=== PATIENT | female | born 1970 | race Caucasian/White ===

== ENCOUNTER → 2024-04-16 06:41 | Outpatient (REF) | payer OTHER, SELFPAY | LOC: MRI 06:41 | PROVIDERS: ATTENDING PHYSICIAN Physician Assistant Medical; FAMILY PHYSICIAN Internal Medicine | DX: M54.12 Radiculopathy, cervical region (principal); M48.02 Spinal stenosis, cervical region | CPT/HCPCS: 72141 ==

== ENCOUNTER → 2024-07-13 06:17 | Day surgery (SDC) | payer OTHER, SELFPAY | LOC: GI 06:17 | PROVIDERS: ATTENDING PHYSICIAN Internal Medicine | PROC: 0DBL8ZX Excision of Transverse Colon, Via Natural or Artificial Opening Endoscopic, Diagnostic (ICD-10-PCS; 2024-07-13) | DX: Z12.11 Encounter for screening for malignant neoplasm of colon (principal); D12.3 Benign neoplasm of transverse colon | CPT/HCPCS: 45385; 88305 ==

== ENCOUNTER → 2024-07-27 08:02 | Outpatient (REF) | payer OTHER, SELFPAY | LOC: HWWDC 08:02 | PROVIDERS: ATTENDING PHYSICIAN Obstetrics & Gynecology Gynecology; FAMILY PHYSICIAN Internal Medicine | DX: E28.39 Other primary ovarian failure (principal); Z12.31 Encounter for screening mammogram for malignant neoplasm of breast | CPT/HCPCS: 77063; 77067; 77080 ==

== ENCOUNTER → 2024-10-27 18:36 | Outpatient (REF) | payer OTHER, SELFPAY | LOC: PAVMRI 18:36 | PROVIDERS: ATTENDING PHYSICIAN Orthopaedic Surgery Orthopaedic Surgery of the Spine; FAMILY PHYSICIAN Internal Medicine | DX: M48.02 Spinal stenosis, cervical region (principal) | CPT/HCPCS: 72141 ==

== ENCOUNTER → 2024-12-13 07:18 | Outpatient (REF) | payer OTHER, SELFPAY | LOC: MRI 07:18 | PROVIDERS: ATTENDING PHYSICIAN Orthopaedic Surgery Orthopaedic Surgery of the Spine; FAMILY PHYSICIAN Internal Medicine | DX: M48.062 Spinal stenosis, lumbar region with neurogenic claudication (principal) | CPT/HCPCS: 72148 ==

== ENCOUNTER 2025-05-19 14:20 | Emergency (ER) | payer OTHER, SELFPAY ==
[2025-05-19 14:26] VITALS: BP 166/83
[2025-05-19 14:48] LABS: Hematocrit 32.5 % (37.0-47.0); Hemoglobin 11.2 g/dL (12.0-16.0); Mean Corp Hgb Conc. 34.5 g/dL (33.0-37.0); Mean Corpuscular Volume 90.8 fL (81.0-99.0); Nucleated Red Blood Cells % 0 %; Platelet Count 274 10^3/uL (130-400); Red Cell Dist. Width 12.5 % (11.5-14.5)
[2025-05-19 14:59] LABS: INR 0.92; PT 12.9 Sec (11.4-14.6)
[2025-05-19 15:00] LABS: APTT 26.3 Sec (23.4-35.0)
[2025-05-19 15:25] LABS: ALT (SGPT) 98 U/L (0-35); AST (SGOT) 67 U/L (14-36); Albumin 3.8 g/dl (3.5-5.0); Alkaline Phosphatase 81 U/L (38-126); Blood Urea Nitrogen 14 mg/dl (7-17); Calcium 9.3 mg/dl (8.4-10.2); Carbon Dioxide 26 mmol/L (22-30); Chloride 106 mmol/L (98-107); Glucose 101 mg/dl (70-99); Potassium 4.1 mmol/L (3.5-5.1); Sodium 139 mmol/L (135-145); Total Protein 6.2 g/dl (6.3-8.2); eGFR > 60.00
--- NOTE | 2025-05-19 17:19 | ED.GENMED ---
History of Present Illness
General
Chief Complaint: Chest Pain
Source: patient
Exam Limitations: none
Time Seen by Provider: 05/19/25 17:19
Nursing documentation reviewed up to this point in time: agreed with
History of Present Illness
History of Present Illness:
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 She reports starting in the
beginning of May she felt her heart pounding even at rest and has not felt well. She does feel little short of breath. She exercises frequently and normally her resting is in the 50s 60s however she looked on her Fitbit and since March her
heart rate has been very elevated up to the 130s. She saw her family doctor last week and her heart rate was elevated at that time. She was given a prescription for blood work but did not yet get it done. She denies any associated chest pain.
She does not smoke.
As documented she has a known right lung mass /nodule and is followed by Juan. She had PET testing and biopsy testing which was inconclusive however since 2022 has been monitored and unchanged so they are simply following it.
Past History
Past History
ED Past Medical History: Other (Scoliosis)
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
Social History
Tobacco: Non-smoker
Alcohol: Daily (Beer or wine 2-3 glasses)
Personal: Single (Engaged)
Living: with family
Phy Exam
General Physical Exam
General Presentation: no apparent distress
General age: appears stated age
General Skin: warm and dry
General Habitus: normal
General Mental: alert
General Hydration: appears well hydrated
Neurological Exam
Neurological Exam: alert and oriented x3
Musculoskeletal Exam
Musculoskeletal Exam: full ROM
Skin Exam
Skin Exam: normal color and warm/dry
Psychiatric Exam
Psychiatric Exam: normal mood/affect
Scores
Heart Score for Chest Pain Patients
STEMI patient?: Not applicable
Course
Orders/Labs/Results
Orders:
Orders
05/19/25 14:23
Electrocardiogram (*1) Urgent
Reason for Study: Bradycardia / Tachycardia
EKG- Treatment ONCE
05/19/25 14:39
Complete Blood Count/With Diff Urgent
Comprehensive Metabolic Panel Urgent
Free T4 Urgent
PT/INR [Prothrombin Time] Urgent
PTT Urgent
TSH Reflex To Free T4 Urgent
05/19/25 18:22
CT Chest PE Study Urgent
Comment:
Reason For Exam: sob elevated HR known right mass
05/19/25 18:26
0.9% Sodium Chloride 1000 ml [Nss] 1,000 ml IV BOLUS
05/19/25 19:38
Atenolol [Tenormin] 25 mg PO NOW STA
05/19/25 19:39
Methimazole [Tapazole] 10 mg PO NOW STA
Abnormal Lab Results
05/19/25
14:39
RBC 3.58 L 10^6/uL
(4.20-5.40)
Hgb 11.2 L g/dL
(12.0-16.0)
Hct 32.5 L %
(37.0-47.0)
MCH 31.3 H pg
(27.0-31.0)
Absolute Monos (auto) 1.2 H 10^3/uL
(0.1-0.6)
Monocytes % 17.3 H %
(1.7-9.3)
Creatinine 0.4 L mg/dL
(0.6-1.0)
Glucose 101 H mg/dl
(70-99)
AST 67 H U/L
(14-36)
ALT 98 H U/L
(0-35)
Total Protein 6.2 L g/dl
(6.3-8.2)
TSH (Reflex) < 0.02 L uIU/ml
(0.47-4.68)
Free T4 5.60 H ng/dl
(0.78-2.19)
05/19/25 14:39
05/19/25 14:39
Vital Signs
Initial and Last Documented VS:
Initial Vital Signs
Temp Pulse Resp BP Pulse Ox
98.7 F 116 20 166/83 95
05/19/25 14:26 05/19/25 14:26 05/19/25 14:26 05/19/25 14:26 05/19/25 14:26
Last Documented Vital Signs
Temp Pulse Resp BP Pulse Ox
98.7 F 98 19 128/61 95
05/19/25 14:26 05/19/25 19:50 05/19/25 19:50 05/19/25 19:49 05/19/25 18:13
Foundry Worker consulted with Physician
Foundry Worker consulted with physician?: Yes
Name of Physician Consulted: Kathy
MDM/Problems Addressed
Differential Diagnosis Includes:
Not limited to hyperthyroidism, electrolyte abnormality, dehydration, PE
MDM/Problems Addressed:
As documented patient is a 54-year-old female presented for elevated heart rate .
As documented patient noted on her Fitbit that her heart rate has been elevated since March which is not her typical heart rate normally she has very low resting heart rate as she is very active and exercises often. Early May she started with
palpitations. She presented here tachycardic however no acute distress not hypoxic. She is however being followed by Juan for pulmonary nodule and is also on hormone replacement therapy for premature ovarian failure. Because of this we will order
CT PE study however after reviewing lab results thyroid studies were abnormal consistent with hyperthyroidism. Case reviewed ED physician case reviewed with endocrinology on-call Dr. Holden who does recommend 10 mg twice of methimazole and a
beta-nima such as atenolol. Will give first doses here in the ER patient will need to see endocrinology within the next 2 weeks I did discuss this with pt .
ct neg.
She is well appearing and stable for d/c
Chronic conditions affecting care:
Premature ovarian failure on hormone replacement, pulmonary nodule being followed by Juan
*Radiology
Radiology exam reviewed: radiology read reviewed
*Pulse Oximetry
SaO2: 95
Oxygen Mode of Delivery: Room air
Patient hypoxic: no
*EKG
Interpreted by ED Provider?: Yes
Interpretation: abnormal
Heart Rate: 114
Rate: tachycardiac
Rhythm: sinus
Ischemia: no ischemia
*Critical Care Note
Total Time (30-74mins, 75-104mins- exclusive of procedures): Not Applicable
Patient Management
Discussion with other providers: Thread Marker
Escalation/DeEscalation of care consider admission/obs:
DR Keller
ED Attending Note
-
Portions of this chart may have been created with voice recognition software.� Occasional wrong word or��sound alike� substitutions may have occurred due to the inherent limitations of voice recognition software.
Discharge Plan
Departure
Patient Disposition: Home (Routine Discharge)
Date of Disposition: 05/19/25
Time of Disposition: 20:04
Patient with high blood pressure during this ER visit?: Yes
Condition: Fair
Covid-19: Not Applicable
Discharge Problem:
Hyperthyroidism
Instructions: Hyperthyroidism (overactive thyroid), BLOOD PRESSURE
Prescriptions:
New
atenolol 25 mg tablet
25 mg PO DAILY Qty: 30 0RF
methimazole 10 mg tablet
10 mg PO BID Qty: 60 0RF
No Action
celecoxib [Celebrex] 200 mg Capsule
200 mg PO PRN PRN (Reason: pain)
norethindrone ac-eth estradiol [Fyavolv] 1-5 mg-mcg Tablet
1 tab PO DAILY
acetaminophen [Tylenol Ex Str Arthritis Pain] 500 mg Tablet
1,000 mg PO Q6H PRN (Reason: pain)
albuterol 90 mcg/actuation Aerosol
90 mcg INHALATION PRN PRN (Reason: asthma)
fluticasone propionate [Flonase] 50 mcg/actuation [place],Suspension
1 spray INTRANASAL DAILY PRN (Reason: allergy)
gabapentin 300 mg Tablet
300 mg PO QHS
Probiotic with Prebiotic 1 billion-250 cell-mg Capsule
1 cap PO DAILY
fhqzrt-hgwyceaj-pcu C-E-herbal 1,250 mcg-50 mg -67.5 mg-15 mg Tablet,Chewable
1 tab PO DAILY
Collagen Skin Renewal 30-833.3 mg Tablet
1 tab PO DAILY
Referrals:
Rosaline Holden MD [Consulting Staff, Endocrinology]
Efra Brenner MD [Family Provider, Internal Medicine]
Activity Restrictions/Additional Instructions:
As discussed prescriptions were sent to your pharmacy including atenolol which is a beta-nima 25 mg once a day; and methimazole 10 mg twice a day to treat your hyperactive thyroid.
Please call endocrinology tomorrow morning to schedule an appointment soon as possible within the next 1 to 2 weeks.
Avoid caffeine
Return if any worsening of symptoms
Interventions
Interventions:
*Risk Screen - Suicide Last Done: 05/19/25 14:26
*General Assessment Last Done: 05/19/25 14:26
*Neglect/Abuse Screening Last Done: 05/19/25 17:12
*ED- Fall Risk Assessment Last Done: 05/19/25 17:12
*ED COVID-19 Vaccine History Last Done: 05/19/25 17:12
ED- Cardiac Assessment Last Done: 05/19/25 17:12
Discharge Date and Time
Print Language: PORTUGUESE
[2025-05-19 18:52] VITALS: BMI 24.6
[2025-05-19] MEDS: NSS 1000 IV (19:00)
[2025-05-19] MEDS: TENORMIN 25 MG PO (19:48)
[2025-05-19 19:49] VITALS: BP 128/61
[2025-05-19] MEDS: TAPAZOLE 10 MG PO (19:52)
== END 2025-05-19 20:15 | disposition home or self-care (01) ==
LOC: EMR 14:20
PROVIDERS: EMERGENCY PHYSICIAN Emergency Medicine; FAMILY PHYSICIAN Internal Medicine
DX: E05.90 Thyrotoxicosis, unspecified without thyrotoxic crisis or storm (principal); R91.1 Solitary pulmonary nodule; E28.39 Other primary ovarian failure; M41.9 Scoliosis, unspecified; Z79.890 Hormone replacement therapy
CPT/HCPCS: 99284; 96360; 71275; 80053; 84439; 84443; 85025; 85610; 85730; 93005; Q9967

== ENCOUNTER → 2025-05-27 06:51 | Outpatient (REF) | payer OTHER, SELFPAY | LOC: RAD 06:51 | PROVIDERS: ATTENDING PHYSICIAN Nurse Practitioner Family; FAMILY PHYSICIAN Internal Medicine | DX: E05.90 Thyrotoxicosis, unspecified without thyrotoxic crisis or storm (principal) | CPT/HCPCS: 76536 ==

== ENCOUNTER → 2025-07-23 20:46 | Outpatient (REF) | payer OTHER, SELFPAY | LOC: MRI 20:46 | PROVIDERS: ATTENDING PHYSICIAN Orthopaedic Surgery Orthopaedic Surgery of the Spine; FAMILY PHYSICIAN Internal Medicine | DX: M48.02 Spinal stenosis, cervical region (principal) | CPT/HCPCS: 72141 ==

== ENCOUNTER → 2025-08-09 07:20 | Outpatient (REF) | payer OTHER, SELFPAY | LOC: HWWDC 07:20 | PROVIDERS: ATTENDING PHYSICIAN Obstetrics & Gynecology Gynecology; FAMILY PHYSICIAN Internal Medicine | DX: Z12.31 Encounter for screening mammogram for malignant neoplasm of breast (principal) | CPT/HCPCS: 77063; 77067 ==

== ENCOUNTER → 2025-08-24 08:26 | Outpatient (REF) | payer OTHER, SELFPAY | LOC: WDC 08:26 | PROVIDERS: ATTENDING PHYSICIAN Obstetrics & Gynecology Gynecology; FAMILY PHYSICIAN Internal Medicine | DX: R92.8 Other abnormal and inconclusive findings on diagnostic imaging of breast (principal) | CPT/HCPCS: 76642 ==